=== PATIENT | female | born 1995 | race Caucasian/White ===

== ENCOUNTER 2020-07-27 10:59 | Day surgery (SDC) | payer OTHER, SELFPAY ==
[2020-07-27] MEDS ORDERED: hydrALAZINE 20 MG/ML VIAL SLOW IVP PRN (11:36)
[2020-07-27 11:47] VITALS: BP 129/79; TEMP 97.8; BMI 32.8
--- NOTE | 2020-07-27 12:04 | PDOC.BPN ---
- Brief Progress Note Patient seen at bedside Triage A DX: Florentino Aden See full dictation
--- NOTE | 2020-07-27 12:21 | PRG ---
DATE OF SERVICE: URINALYSIS NOTE The patient was offered cath UA, but the patient declined. We will convert to a clean-catch at the patient's request. Patient now refused void clean catch. OK for [place] home. Stable Job ID: [id number] [facility]
--- NOTE | 2020-07-27 12:30 | HP ---
TIME OF INITIAL EVALUATION: Roughly 1145, it is now 12 noon. This is a patient of Dr. Diaz. CHIEF COMPLAINT: Possible contractions/lower pelvic pain at 35 weeks. HISTORY OF PRESENT ILLNESS: In brief, this is a 25-year-old, G7, P1, with 5 spontaneous losses with an EDC stated of August 28, 2020. This places her at 35 weeks and 3 days. It is important to note that she states that she has not seen Dr. Diaz, her usual provider, since about 20 weeks because of "fear of COVID." She states that she came in because last night she started having some pelvic pain and possible contractions, although she was able to sleep through them, but this morning about 9:30 started with increased contraction and discomfort. She also states some unusual "skin discoloration" in the lower pelvis, but is not associated with any ulceration. She denies any recent intercourse, no vaginal bleeding, no leakage of fluid, and she is not concerned about any change in movement because it is normal. She does not have any other specific complications. REVIEW OF SYSTEMS: GENERAL: No COVID exposure. No recent trauma. PULMONARY: No shortness of breath. CARDIOVASCULAR: No chest pain. : No specific dysuria symptoms. GI: No specific GI concerns per initial triage assessment. PAST MEDICAL HISTORY: Negative. MEDICATIONS: Prenatals SURGERIES: Includes, tympanoplasty (ear tubes). ALLERGIES: TO PENICILLIN. SOCIAL HISTORY: Negative for alcohol, tobacco, or drug use. OB HISTORY: She has had 1 previous vaginal delivery and it was at term. This did not have a glucose tolerance evaluation because she has missed that appointment. However, she does not have a history of yariel gestational diabetes. PHYSICAL EXAMINATION: GENERAL: She is in no acute distress and resting comfortably in bed. VITAL SIGNS: Her blood pressure is 129/79, she is afebrile. Pulse is in the 80s, her respirations are 18 and unlabored. ABDOMEN: Soft, nontender, and there is no visible skin lesions or skin discoloration. ABDOMEN: Soft to the touch without rebound or rigidity. Uterine fundus is compatible with the third trimester . PELVIC: I performed a pelvic examination. There is no evidence of gross vaginal bleeding or leakage of fluid. There is no vulvovaginal lesion. Cervical exam by me reveals a cervix that is fingertip (0.5 cm), 0 effacement, and -3 station. There was no gross evidence of leakage of fluid on my exam. The baby's head is cephalic and ballotable. On external monitor, I have reviewed the strip and the baby's heart tones are in the 130s to 140s and they are reactive. There is accelerations noted and there is no pathological decelerations. The tocodynamometer for uterine contractions does not reveal any active contraction pattern. I have annotated the strip, which shows that I have reviewed the strip in real-time. ASSESSMENT: This is a 25-year-old, G7, P1, who is at 35 weeks and 3 days, who has missed some visits, who now presents with possible labor. There is no evidence of latent labor at this time. Diagnosis is Florentino Aden. We will evaluate for urinary tract infection. PLAN: 1. Due to pelvic pressure, we will do a cath UA to make sure we are not missing UTI on laboratory criteria. 2. No evidence of true labor. 3. No evidence of hypertension or distress. 4. The patient can be cleared once her UA returns and we will treat appropriately if necessary. 5. I did instruct her/recommend to follow up with her regularly scheduled [facility] provider because her GBS swab will be due starting at 36 weeks. I did not collect a GBS today because she is under 36 weeks according to ACOG guidelines. Job ID: [id number] [facility]
[2020-07-28] MEDS ORDERED: FLU VACC QS2020-21(6MOS UP)/PF 60 MCG/0.5 ML SYRINGE IM ONE (12:00)
== END 2020-07-27 12:15 | disposition home or self-care (01) ==
LOC: L&D/OP 10:59
PROVIDERS: ATTEND Obstetrics & Gynecology
DX: O47.03 False labor before 37 completed weeks of gestation, third trimester (principal); O99.891 Other specified diseases and conditions complicating pregnancy; R10.2 Pelvic and perineal pain; Z3A.35 35 weeks gestation of pregnancy; Z88.0 Allergy status to penicillin; Z91.040 Latex allergy status
CPT/HCPCS: 99282

== ENCOUNTER 2020-08-09 16:40 | Inpatient (IN) | payer OTHER ==
[~2020-08-09 16:40] MED LIST: Bupivacaine 0.25% HCL 30 ML VIAL ONE
[2020-08-09] MEDS ORDERED: hydrALAZINE 20 MG/ML VIAL SLOW IVP PRN ×2 (16:46→16:55)
[2020-08-09] MEDS ORDERED: Ibuprofen 800 MG TAB PO PRN (16:55)
[2020-08-09] MEDS ORDERED: Acetaminophen 500 MG TAB PO PRN (16:55)
[2020-08-09] MEDS ORDERED: Misoprostol 200 MCG TAB PR PRN (16:55)
[2020-08-09] MEDS ORDERED: HYDROcodone/Acetaminophen 5/325 mg Tablet PO PRN ×2 (16:55)
[2020-08-09] MEDS ORDERED: Carboprost 250 MCG/ML AMP IM PRN (16:55)
[2020-08-09] MEDS ORDERED: Promethazine HCl 25 MG/ML VIAL IM PRN ×2 (16:55→19:09)
[2020-08-09] MEDS ORDERED: Lidocaine 1% (PF) 30 ML VIAL SC PRN (16:55)
[2020-08-09] MEDS ORDERED: Ondansetron PF 4 MG/2 ML Vial IVP PRN ×2 (16:55→19:09)
[2020-08-09] MEDS ORDERED: Butorphanol Tartrate 1 MG/ML VIAL SLOW IVP PRN (16:55)
[2020-08-09] MEDS ORDERED: Methylergonovine 0.2 MG/ML VIAL IM PRN (16:55)
[2020-08-09] MEDS ORDERED: Diphenoxylate HCl/Atropine Tablet PO PRN ×2 (16:55)
[2020-08-09] MEDS ORDERED: NS w/ Oxytocin 30 units 500 ML IVPB PRN (17:08)
[2020-08-09 17:11] VITALS: BMI 32.9
[2020-08-09] MEDS ORDERED: NS w/ Oxytocin 10 units 500 ML IV SCH (17:30)
--- NOTE | 2020-08-09 17:32 | PDOC.FPROB ---
FMR OB H&P: HPI - History of Present Illness Chief Complaint: water broke Indentification: 25 yo at 37.2 wga History of Present Illness: Patient presents with complaint of thinking her water broke around 1530 today. Had off/on contractions prior to this but no contractions since her water broke. She denies vaginal bleeding and decreased movement. Primary Care Physician: no PNC FMR OB H&P: Current - Care : 2 Para: 1001 Gestational age: 37.2 Course/Complications: no care - OB Labs Blood type: unknown RH: unknown Antibody Screen: unknown HIV: unknown RPR: unknown HepBsAg: unknown Quad screen: unknown Gonorrhea: unknown Chlamydia: unknown GBS: unknown FMR OB H&P: History - Past Medical History PMH: Anxiety Bipolar disorder - OB History OB History: 1 , no care, at 39 wga. 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 - Family History Family History: denies FMR OB H&P: Medications - Current Home Medications: Medication Instructions Recorded Confirmed Type No Known 07/27/20 08/09/20 History Allergies/Adverse Reactions: Allergies Allergy/AdvReac Type Severity Reaction Status Date / Time Penicillins Allergy Intermediate Hives Verified 08/09/20 17:05 latex Allergy Rash Verified 08/09/20 17:05 FMR OB H&P: ROS - Review of Systems General: denies: fever/chills, weight/appetite/sleep changes ENT: denies: nasal congestion, rhinorrhea Cardiovascular: denies: chest pain, edema Gastrointestinal: denies: abdominal pain, nausea, vomiting Genitourinary (Female): denies: dysuria, vaginal discharge, vaginal bleeding, contractions Musculoskeletal: denies: pain, tenderness, swelling Neurologic: denies: numbness, syncope Integumentary: denies: itching, rash Psychological: reports: depression, anxiety FMR OB H&P: Vital Signs - Maternal Vital signs: BP 125/83 Satting well on RA. - Heart Tones Baseline: 140 (reactive) Variability: moderate Acceleration: present Deceleration: absent [place] contractions every: none FMR OB H&P: Physical Exam - Physical Exam General: NAD, awake, alert and oriented HEENT: normocephalic and atraumatic, no scleral icterus, grossly normal vision, grossly normal hearing Heart: RRR, normal S1/S2 General: CTAB, no respiratory distress Abdomen: soft, gravid Neurological: no focal deficit Skin: no rash Lymphatic: no unusual bruising or bleeding Psychiatric: intact recent and remote memory, normal mood and affect - Pelvic Exam SVE: 75/-4 Kee score: 7 Membranes: grossly ruptured, meconium stained Presentation: cephalic by bedside sono Estimated Weight: 7 lbs FMR OB H&P: A/P Disposition: admit to L&D. No PNC labs. Discussion: Date/Time: 08/09/20 1731 25 yo at 37.2 wga Prelabor/premature ROM - admit to L&D - no PNC labs to be drawn\ - meconium stained fluids No care - had 1 appt w/ Dr. Diaz - reports she did have anatomy sono at 22 wks, no abnormalities This H&P was discussed with Dr. Pimentel, who agrees with the above documentation and plan. Signature: Marissa Steward MD, PGY2 Addendum - Attending - Attending Attestation Date/Time: 08/09/201924 I personally evaluated the patient and discussed the management with Dr. Steward. I agree with the History, Examination, Assessment and Plan documented above.
[2020-08-09] MEDS ORDERED: Fentanyl 4 mcg/Bup 0.1% Cadd 0 ML ONE (18:16)
[2020-08-09 18:17] LABS: Hemoglobin 10.5 g/dL (12.0-16.0); Mean Corpuscular HGB CONC 32.6 g/dL (32.0-36.0); Mean Corpuscular Hemoglobin 27.5 pg (27.0-31.0); Mean Corpuscular Volume 84.4 fL (78.0-98.0); Mean Platelet Volume 7.7 fL (7.4-10.4); Platelet Count 285 thou/uL (130-400); RBC Distribution Width 12.4 % (11.5-14.5); Red Blood Cell (RBC) Count 3.81 mill/uL (4.20-5.40); White Blood Cell (WBC) Count 11.3 thou/uL (4.8-10.8)
[2020-08-09] MEDS ORDERED: Fentanyl 4 mcg/Bup 0.1% Cadd 100 ML ONE (18:17)
[2020-08-09 19:01] LABS: Syphilis Antibody Nonreactive (Nonreactive); Syphilis Antibody Index 0.03 S/CO (<1.00 Non-Reactive)
[2020-08-09] MEDS ORDERED: ePHEDrine 50 MG/ML VIAL SLOW IVP PRN (19:09)
[2020-08-09] MEDS ORDERED: diphenhydrAMINE 50 MG/ML VIAL IVP PRN (19:09)
[2020-08-09] MEDS ORDERED: Naloxone HCl 0.4 mg/ml Vial IVP PRN ×2 (19:09)
[2020-08-09] MEDS ORDERED: Lactated Ringer's 500 ML IV PRN (19:09)
[2020-08-09 19:13] LABS: HBSAg Index 0.24 S/CO (0-0.99); HIV (1/2) Antibody/Antigen Non-Reactive (NonReactive); HIV 1/2 INDEX 0.08 S/CO (<1.00); Hep B Surf Ag Non-Reactive S/CO (NonReactive)
[2020-08-09] MEDS ORDERED: Communication Order-Pharmacy FS SCH (19:15)
[2020-08-09] MEDS ORDERED: Fentanyl 4 mcg/Bupivacaine 0.1% Cassette 100 ML EPIDURAL SCH (19:15)
[2020-08-09] MEDS: Lactated Ringer's 1,000 ML IV SCH (19:34)
[2020-08-09 20:21] LABS: Amphetamine Detected (NotDetected); Barbiturates Screen Not Detected (NotDetected); Benzodiazepine Screen Not Detected (NotDetected); Cocaine Metabolite Screen Not Detected (NotDetected); Medtox Control Line Valid? VALID (VALID); Medtox Reader # READER 1; Methadone Not Detected (NotDetected); Methamphetamine Not Detected (NotDetected); Opiate Screen Not Detected (NotDetected); Oxycodone Screen Not Detected (NotDetected); Phencyclidine (PCP) Not Detected (NotDetected); THC/Cannabinoid Screen Not Detected (NotDetected); Tricyclic Screen Not Detected (NotDetected)
--- NOTE | 2020-08-10 01:05 | PDOC.OPDEL ---
OB Operative/Delivery Note Delivery Dr/Surgeon: Rosibel Steward, PGY2 Assist: Attending: Dr. Pimentel Pre-Delivery Diagnosis: ruptured membrane Procedure/Post Delivery Dx: spontaneous vaginal delivery Weeks gestation: 37 (37.2) Anesthesia: epidural - Additional Findings/Plan Placenta delivered: spontaneous Repaired Obstetrical Laceration: none Estimated blood loss: QBL: 350 mL Compilations/Other Findings: Indications: A 25 yo at 37.2 wga presented to L&D for PROM. No care. Procedure: Patient presented to L&D after PROM and subsequent induction with pitocin. Patient delivered a viable male at 00:54. After uneventful antepartum course, was delivered over intact perineum in [place] position. Anterior shoulder and remainder of body were easily delivered. No nuchal cord. was stimulated; mouth and nares were bulb suctioned. Cord was clamped and cut. Cord blood collected. Placenta delivered intact in Vieyra presentation spontaneously. 3V cord noted. Fundal massage was performed; pitocin was ran wide open. Fundus was firm. Perineum and cervix were inspected and found to be free of lacerations. went to warmer briefly where Apgars were 9/9 at 1 and 5 minutes of life. went back to mom for [id number]. Both and patient were in good condition and transferred to for routine recovery. UDS + for amphetamines for CM consult placed. Post delivery plan: routine recovery Addendum - Attending - Attending Attestation Date/Time: 08/10/20 0643 I was present for the entire delivery.
[2020-08-10] MEDS ORDERED: Ondansetron PF 4 MG/2 ML Vial IVP PRN (06:06)
[2020-08-10] MEDS ORDERED: diphenhydrAMINE 25 MG CAP PO PRN (06:06)
[2020-08-10] MEDS ORDERED: Lanolin Ointment 7 GM TUBE TOP PRN (06:06)
[2020-08-10] MEDS ORDERED: hydrALAZINE 20 MG/ML VIAL SLOW IVP PRN (06:06)
[2020-08-10] MEDS ORDERED: Adacel (T-DAP) 0.5 ML SYRINGE IM ONE (06:06)
[2020-08-10] MEDS ORDERED: Benzocaine-Menthol 82.5 ML CAN TOP PRN (06:06)
[2020-08-10] MEDS ORDERED: NS w/ Oxytocin 30 units 500 ML IV SCH (06:06)
[2020-08-10] MEDS ORDERED: Preparation H Ointment 28 GM TUBE PR PRN (06:06)
[2020-08-10] MEDS ORDERED: Bisacodyl 10 MG SUPP PR PRN (06:06)
[2020-08-10] MEDS ORDERED: Misoprostol 200 MCG TAB VAG PRN (06:06)
[2020-08-10] MEDS ORDERED: Milk Of Magnesia 30 ML UDCUP PO PRN (06:06)
--- NOTE | 2020-08-10 07:22 | PDOC.PP ---
Post Progress Note Post Day #: 0 Subjective: Doing well this am, no complaints. Wants to go home. PO intake tolerated: yes Ambulation: yes Weight Weight 192 lb - Physical Examination General: NAD Respiratory: non-labored breathing Abdominal: lochia (normal), no distention, appropriately TTP Fundus firm & at: below umbilicus Neurological: no gross focal deficits Psychiatric: A&Ox3, normal affect Result Diagrams: 08/09/20 18:03 Additional Labs: Post Labs Hep Bs Antigen Non-Reactive S/CO (NonReactive) 08/09/20 18:03 Blood Type A POSITIVE 08/09/20 18:03 (1) PROM (premature rupture of membranes) Code(s): O42.90 - CINDY ROM, 7TH0 BETW RUPT & ONST LABR, UNSP WEEKS OF GEST Sta tus: Acute (2) Drug use affecting in third trimester Code(s): O99.323 - DRUG USE COMPLICATING , THIRD TRIMESTER Status: Acute (3) Normal delivery Status: Acute - Assessment/Plan Continue routine PP management. Case management consulted for +UDS.
[2020-08-10] MEDS: Lactated Ringer's 1,000 ML IV SCH (07:38)
[2020-08-10] MEDS: Acetaminophen 325 MG TAB PO PRN ×2 (07:59→19:57)
[2020-08-10] MEDS: Ferrous Sulfate 325 MG TAB PO SCH (08:00)
[2020-08-10] MEDS: Docusate Calcium (SURFAK) 240 MG CAP PO SCH ×2 (08:00→19:57)
[2020-08-10] MEDS: Prenatal Vitamin 1 TAB PO SCH (08:01)
[2020-08-10] MEDS: Ibuprofen 800 MG TAB PO SCH ×3 (08:01→21:25)
[2020-08-10] MEDS ORDERED: FLU VACC QS2020-21(6MOS UP)/PF 60 MCG/0.5 ML SYRINGE IM ONE (09:00)
[2020-08-10 13:46] LABS: SARS-CoV-2 PCR by NAA Not Detected (NotDetected)
[2020-08-11] MEDS: Ferrous Sulfate 325 MG TAB PO SCH ×2 (03:26→07:34)
[2020-08-11] MEDS: Ibuprofen 800 MG TAB PO SCH (04:52)
--- NOTE | 2020-08-11 06:36 | PDOC.PP ---
Post Progress Note Post Day #: 1 Subjective: Patient sleeping comfortably. PO intake tolerated: yes Flatus: yes Ambulation: yes Vital Signs (12 hours) Temp Pulse Resp BP Pulse Ox 08/11/20 00:50 98.1 F 73 18 107/57 L 08/10/20 19:57 97.9 F 90 16 109/57 L 98 Weight Weight 87.09 kg - Physical Examination General: NAD Cardiovascular: no m/r/g, RRR Respiratory: clear to auscultation bilaterally Abdominal: + bowel sounds, lochia (downtrending), no distention, appropriately TTP Fundus firm & at: well below umbilicus Result Diagrams: 08/09/20 18:03 Additional Labs: Post Labs Hep Bs Antigen Non-Reactive S/CO (NonReactive) 08/09/20 18:03 Blood Type A POSITIVE 08/09/20 18:03 - Assessment/Plan 25 yo G7 now [id number] delivered at PPD#1 s/p - meeting milestones - refused AM hemagram Dispo: stable for discharge home today. Will be discharged without due to UDS+ and UDS+. CPS involved.
[2020-08-11 08:11] VITALS: BP 117/71; TEMP 97.9
[2020-08-11] MEDS: Docusate Calcium (SURFAK) 240 MG CAP PO SCH (10:00)
[2020-08-11] MEDS: Prenatal Vitamin 1 TAB PO SCH (10:00)
== END 2020-08-11 11:00 | disposition home or self-care (01) | DRG 806 ==
LOC: L&D/OP 16:40 → L&D 17:30 → 3SW 08-10 18:13
PROVIDERS: ADMIT Obstetrics & Gynecology; ATTEND Obstetrics & Gynecology
PROC: 10E0XZZ Delivery of Products of Conception, External Approach (ICD-10-PCS; principal; 2020-08-10)
DX: O42.02 Full-term premature rupture of membranes, onset of labor within 24 hours of rupture (principal); Z37.0 Single live birth; Z3A.37 37 weeks gestation of pregnancy; Z20.822 Contact with and (suspected) exposure to COVID-19; O99.323 Drug use complicating pregnancy, third trimester; O99.344 Other mental disorders complicating childbirth; F41.9 Anxiety disorder, unspecified; F31.9 Bipolar disorder, unspecified; Z87.891 Personal history of nicotine dependence
CPT/HCPCS: 36415; 51702; 80306; 85027; 86762; 86780; 86850; 86900; 86901; 87340; 87389; 87635; 99285; S0020; U0003; U0005